=== PATIENT | female | born 1995 | race Caucasian/White ===

== ENCOUNTER 2024-06-14 13:57 | Emergency (ER) | payer OTHER ==
[2024-06-14 14:04] VITALS: BP 123/80; PULSE 96; RESP 18; TEMP 98.6; BMI 23.1
[2024-06-14] MEDS ORDERED: ACETAMINOPHEN 500 MG TABLET (FP) ONE (14:37)
[2024-06-14] MEDS: ACETAMINOPHEN 500 MG TABLET (FP) PO ONE (15:01)
[2024-06-14 15:06] LABS: URINE APPEARANCE CLEAR; URINE BILIRUBIN NEGATIVE (NEGATIVE); URINE COLOR YELLOW; URINE GLUCOSE (UA) NEGATIVE (NEGATIVE); URINE KETONE NEGATIVE (NEGATIVE); URINE LEUK ESTERASE NEGATIVE (NEGATIVE); URINE NITRITE NEGATIVE (NEGATIVE); URINE PROTEIN NEGATIVE (NEGATIVE); URINE UROBILINOGEN 0.2 mg/dL (0.2-1.0)
== END 2024-06-14 15:26 | disposition home or self-care (01) ==
LOC: JER 13:57
DX: O26.892 Other specified pregnancy related conditions, second trimester (principal); R10.30 Lower abdominal pain, unspecified; O99.891 Other specified diseases and conditions complicating pregnancy; R35.0 Frequency of micturition; R30.0 Dysuria; Z3A.19 19 weeks gestation of pregnancy
CPT/HCPCS: 76815; 81003; 87086; 99284-25